=== PATIENT | male | born 1935 | race Asian ===

== ENCOUNTER 2020-02-27 15:44 | Emergency (ER) | payer MEDICARE, MEDICAID ==
--- NOTE | 2020-02-27 16:05 | ED Physician Documentation ---
History of Present Illness - Stated complaint Stated Complaint: RT KNEE PX - Chief complaint Chief Complaint: Ext Problem - History obtained from History obtained from: Patient - History of Present Illness Timing: How many days ago (2) Pain level max: 5 Pain level now: 4 - Additonal information Additional information: 84-year-old male presents to the emergency department with right knee pain that started yesterday, worse today after being up on a ladder. He states he was only up 2-3 steps. States increased pain with walking. No swelling. He also complains of right fourth toe pain for the past 4 months. Does not recall any injury. He is diabetic. He states that his blood sugars are normally around 100. He states he has not seen his doctor for this. Worse with walking, better with rest. No fevers. No chills. No known injury to the foot. Review of Systems Ten Systems: 10 systems reviewed and negative Constitutional: denies: Fever, Chills Ears: denies: Ear pain GI: denies: Vomiting, Diarrhea Skin: denies: Rash Musculoskeletal: denies: Neck pain, Back pain Neurologic: denies: Headache PD PAST MEDICAL HISTORY - Past Medical History Past Medical History: No - Past Surgical History Past Surgical History: No - Present Medications Home Medications: Ambulatory Orders Medication Instructions Recorded Confirmed Amlodipine Besylate 5 mg PO DAILY PM 02/27/20 02/27/20 Amox/Clav 875/125 [Augmentin] 1 each PO Q12H #20 tablet 02/27/20 Aspirin [Adult Aspirin Regimen] 81 mg PO DAILY PM 02/27/20 02/27/20 Dutasteride 0.5 mg PO DAILY 02/27/20 02/27/20 Gabapentin 300 mg PO DAILY 02/27/20 02/27/20 Glimepiride 4 mg PO DAILY 02/27/20 02/27/20 Linagliptin [Tradjenta] 5 mg PO DAILY 02/27/20 02/27/20 Losartan Potassium 100 mg PO DAILY 02/27/20 02/27/20 Lovastatin 40 mg PO DAILY PM 02/27/20 02/27/20 Meloxicam [Mobic] 7.5 mg PO BID PRN #20 tablet 02/27/20 Metoprolol Succinate 50 mg PO DAILY 02/27/20 02/27/20 Tamsulosin HCl [Flomax] 0.4 mg PO DAILY 02/27/20 02/27/20 Timolol 0.5% Ophth Drops [Timoptic 1 drops RIGHTEYE BID 02/27/20 02/27/20 0.5% Ophth Drops] - Allergies Allergies/Adverse Reactions: Allergies Allergy/AdvReac Type Severity Reaction Status Date / Time No Known Drug Allergies Allergy Verified 02/27/20 15:55 - Living Situation Living Situation: reports: With family Living Arrangement: reports: At home - Social History Does the pt smoke?: No Does the pt drink ETOH?: No Does the pt have substance abuse?: No - Family History Family history: reports: Non contributory PD ED PE NORMAL - Vitals Vital signs reviewed: Yes - General General: Alert and oriented X 3, No acute distress - HEENT HEENT: Moist mucous membranes - Cardiac Cardiac: RRR - Respiratory Respiratory: No respiratory distress, Clear bilaterally - Derm Derm: Warm and dry - Extremities Extremities: Other - Neuro Neuro: Alert and oriented X 3 - Free text exam Free text exam: R knee - Normal examination of the knee. Neurovascular intact. No bony tenderness. No joint effusion. ACL, MCL, LCL, PCL are intact. Right foot shows a diffusely erythematous foot across all of the toes extending to the midfoot. There is diffuse swelling as well. Appears to be a small dry lesion to the distal aspect of the R 4th toe. NVI Results - Vitals Vitals: Vital Signs - 24 hr 02/27/20 02/27/20 15:54 17:56 Temperature 36.5 C 36.7 C Heart Rate 58 L 51 L Respiratory 16 18 Rate Blood Pressure 125/54 L 136/60 H O2 Saturation 98 98 Oxygen O2 Source Room air - Labs Labs: Laboratory Tests 02/27/20 02/27/20 02/27/20 16:24 16:24 16:24 WBC 6.9 RBC 4.05 L Hgb 12.4 L Hct 36.8 L MCV 90.9 MCH 30.6 MCHC 33.7 RDW 13.7 Plt Count 140 MPV 11.7 H Neut # (Auto) 4.0 Lymph # (Auto) 1.6 [place] # (Auto) 0.9 Eos # (Auto) 0.4 Baso # (Auto) 0.0 Absolute Nucleated RBC 0.00 Nucleated RBC % 0.0 ESR 15 Sodium 138 Potassium 4.8 Chloride 106 Carbon Dioxide 23 Anion Gap 9.0 BUN 36 H Creatinine 1.9 H Estimated GFR (MDRD) 34 L Glucose 156 H Calcium 8.6 C-Reactive Protein 13.9 H - Rads (name of study) Right foot x-ray Radiology: Prelim report reviewed, EMP read contemporaneously, See rad report (No acute osseous abnormality) Right knee x-ray Radiology: Prelim report reviewed, EMP read contemporaneously, See rad report (Tricompartmental arthritis. No acute abnormality) PD MEDICAL DECISION MAKING - ED course Complexity details: reviewed results, re-evaluated patient, considered differential, d/w patient, d/w family ED course: 84-year-old male presents the emergency department with 2 issues, the first appears to be an arthritis flare of the right knee. Will place on meloxicam for this. The second appears to be cellulitis of the right foot. We will trial him on antibiotics. Does not appear fungal at this time, but if antibiotics fail, would consider antifungal treatment. No evidence of osteomyelitis on x-ray. We will have him follow-up closely with his doctor for repeat evaluation. Patient is ambulating well with a walker. Patient counseled regarding signs and sy mptoms for which I believe and urgent re-evaluation would be necessary. Patient with good understanding of and agreement to plan and is comfortable going home at this time This document was made in part using voice recognition software. While efforts are made to proofread this document, sound alike and grammatical errors may occur. Departure - Departure Disposition: 01 Home, Self Care Clinical Impression: Arthritis of knee Cellulitis Qualifiers: Site of cellulitis: extremity Site of cellulitis of extremity: lower extremity Laterality: right Qualified Code(s): L03.115 - Cellulitis of right lower limb Condition: Good Instructions: ED Infec Skin Cellulitis, ED Degenerative Joint Disease Follow-Up: Pb Goldman MD [Primary Care Provider] - Within 1 week Prescriptions: Amox/Clav 875/125 [Augmentin] 1 each PO Q12H #20 tablet Meloxicam [Mobic] 7.5 mg PO BID PRN #20 tablet PRN Reason: Pain Comments: Take all antibiotics until gone. Return if you worsen. Follow-up with your doctor within 3 days for a wound check. Discharge Date/Time: 02/27/20 18:04
[2020-02-27 16:33] LABS: BASOPHILS % (AUTO) 0.6 %; EOSINOPHILS # (AUTO) 0.4 10^3/uL (0.0-0.7); EOSINOPHILS % (AUTO) 5.1 %; HGB - HEMOGLOBIN 12.4 g/dL (14.0-18.0); LYMPHOCYTES # (AUTO) 1.6 10^3/uL (1.5-3.5); LYMPHOCYTES % (AUTO) 23.7 %; MEAN CORPUSCULAR HEMOGLOBIN 30.6 pg (27.0-31.0); MEAN CORPUSCULAR HGB CONC 33.7 g/dL (32.0-36.0); MEAN CORPUSCULAR VOLUME 90.9 fL (80.0-94.0); MEAN PLATELET VOLUME 11.7 fL (7.4-11.4); MONOCYTES # (AUTO) 0.9 10^3/uL (0.0-1.0); MONOCYTES % (AUTO) 12.6 %; NEUTROPHILS % (AUTO) 57.3 %; PLT - PLATELET COUNT 140 10^3/uL (130-450); RED BLOOD COUNT 4.05 10^6/uL (4.70-6.10); RED CELL DISTRIBUTION WIDTH 13.7 % (12.0-15.0); WHITE BLOOD COUNT 6.9 x10^3/uL (4.8-10.8)
[2020-02-27 16:50] LABS: CALCIUM 8.6 mg/dL (8.5-10.3); CREATININE 1.9 mg/dL (0.6-1.2); CRP - C-REACTIVE PROTEIN 13.9 mg/dL (0-1.0)
--- NOTE | 2020-02-27 17:00 | XRAY Report ---
PROCEDURE: Foot 3 View RT INDICATIONS: R foot redness, swelling, pain x 4 months TECHNIQUE: 3 nonweightbearing views of the foot were acquired. COMPARISON: None. FINDINGS: Bones: No acute fractures or dislocations. No osseous erosions. Minimal degenerative changes of the first metatarsophalangeal joint. No suspicious bony lesions. Soft tissues: No tibiotalar joint effusion. Achilles tendon appears normal. Vascular calcifications are present. IMPRESSION: Right foot without acute fracture or malalignment. Minimal degenerative changes of the right first me tatarsophalangeal joint. If there is continued clinical concern for pathology, then advanced imaging (CT/MRI, bone scan) can b e considered for further evaluation. Reviewed by: Zack Flowers MD on 02/27/2020 4:59 PM PDT Approved by: Zack Flowers MD on 02/27/2020 4:59 PM PDT Station ID: [id number]
--- NOTE | 2020-02-27 17:02 | XRAY Report ---
PROCEDURE: Knee 4 View RT INDICATIONS: R knee pain, no known injury TECHNIQUE: 4 views of the right knee(s) were acquired. COMPARISON: None. FINDINGS: Bones: No acute fractures or dislocations. Tricompartmental osteoarthritic changes of the right knee . No suspicious bony lesions. Soft tissues: No joint effusion. No suspicious soft tissue calcifications. Moderate vascular calcif ications are noted in the imaged portions of the right lower extremity. IMPRESSION: Right knee without acute fracture or malalignment. Tricompartmental osteoarthrosis of the right knee. If there is continued clinical concern for pathology, then advanced imaging (CT/MRI, bone scan) can b e considered for further evaluation. Reviewed by: Zack Flowers MD on 02/27/2020 5:00 PM PDT Approved by: Zack Flowers MD on 02/27/2020 5:00 PM PDT Station ID: [id number]
[2020-02-27] MEDS ORDERED: MELOXICAM 7.5 MG TABLET PO STA (17:28)
[2020-02-27] MEDS ORDERED: AMOX/CLAV 875 MG/125 MG TABLET PO STA (17:28)
[2020-02-27 17:57] VITALS: BP 136/60
[2020-02-27 22:06] LABS: HEMOGLOBIN A1c% 7.2 % (4.27-6.07)
== END 2020-02-27 18:04 | disposition home or self-care (01) ==
LOC: ED 15:44
DX: M17.11 Unilateral primary osteoarthritis, right knee (principal); L03.115 Cellulitis of right lower limb; E11.9 Type 2 diabetes mellitus without complications; Z79.84 Long term (current) use of oral hypoglycemic drugs
CPT/HCPCS: 36415; 73564; 73630; 80048; 83036; 85025; 85651; 86140; 99284; A9270

== ENCOUNTER 2022-05-30 14:37 | Emergency (ER) | payer MEDICARE, MEDICAID ==
[2022-05-30] MEDS ORDERED: TETANUS/DIPHTHERIA/PERTUSSIS 0.5 ML SYRINGE IM ONE (14:48)
[2022-05-30] MEDS ORDERED: LIDOCAINE-EPINEPH-TETRACAINE 3 ML SYRINGE TOP STA (14:48)
--- NOTE | 2022-05-30 14:50 | ED Physician Documentation ---
PD HPI HEAD INJURY - Stated complaint Stated Complaint: HEAD INJ - History obtained from History obtained from: Patient - Additional information Additional information: Patient is an 87-year-old presenting for evaluation of head injury. He was on a table trying to get something out of a shelf when he fell back. He did not realize that the object he was try to get out of the shelf was as heavy as it was. He did hit his head. He did not have LOC. He takes baby aspirin but otherwise no other blood thinners.He denies pain elsewhere. He is unsure of his last tetanus. Review of Systems Constitutional: denies: Fever Cardiac: denies: Chest pain / pressure Respiratory: denies: Dyspnea GI: denies: Abdominal Pain : denies: Dysuria Skin: reports: Laceration (s) Musculoskeletal: denies: Neck pain, Back pain Neurologic: reports: Head injury. denies: Syncope PD PAST MEDICAL HISTORY - Past Surgical History Past Surgical History: No - Present Medications Home Medications: Ambulatory Orders Medication Instructions Recorded Confirmed Amlodipine Besylate 5 mg PO DAILY PM 02/27/20 02/27/20 Amox/Clav 875/125 [Augmentin] 1 each PO Q12H #20 tablet 02/27/20 Aspirin [Adult Aspirin Regimen] 81 mg PO DAILY PM 02/27/20 02/27/20 Dutasteride 0.5 mg PO DAILY 02/27/20 02/27/20 Gabapentin 300 mg PO DAILY 02/27/20 02/27/20 Glimepiride 4 mg PO DAILY 02/27/20 02/27/20 Linagliptin [Tradjenta] 5 mg PO DAILY 02/27/20 02/27/20 Losartan Potassium 100 mg PO DAILY 02/27/20 02/27/20 Lovastatin 40 mg PO DAILY PM 02/27/20 02/27/20 Meloxicam [Mobic] 7.5 mg PO BID PRN #20 tablet 02/27/20 Metoprolol Succinate 50 mg PO DAILY 02/27/20 02/27/20 Tamsulosin HCl [Flomax] 0.4 mg PO DAILY 02/27/20 02/27/20 Timolol 0.5% Ophth Drops [Timoptic 1 drops RIGHTEYE BID 02/27/20 02/27/20 0.5% Ophth Drops] - Allergies Allergies/Adverse Reactions: Allergies Allergy/AdvReac Type Severity Reaction Status Date / Time No Known Drug Allergies Allergy Verified 02/27/20 15:55 - Social History Does the pt smoke?: No Does the pt drink ETOH?: No Does the pt have substance abuse?: No PD ED PE NORMAL - General General: Alert and oriented X 3, No acute distress, Well developed/nourished - HEENT HEENT: PERRL, EOMI, Other (Large left forehead laceration) - Neck Neck: Supple, no meningeal sign, No bony TTP, C-Spine cleared by NEXUS criteria - Cardiac Cardiac: RRR, Strong equal pulses - Respiratory Respiratory: No respiratory distress, Clear bilaterally - Abdomen Abdomen: Soft, Non tender - Derm Derm: Warm and dry - Extremities Extremities: No deformity - Neuro Neuro: Alert and oriented X 3, bone char puller 2-12 intact, No motor deficit, Normal speech Eye Opening: Spontaneous Motor: Obeys Commands Verbal: Oriented GCS Score: 15 Results - Vitals Vitals: Vital Signs - 24 hr 05/30/22 05/30/22 14:49 17:15 Temperature 36.6 C Heart Rate 61 75 Respiratory 18 18 Rate Blood Pressure 167/72 H 165/76 H O2 Saturation 100 98 Oxygen O2 Source Room air Procedures - Laceration (location) Left forehead Length in cm: 10 Wound type: Irregular, Clean Neurovascular status: Sensory intact, Motor intact, Vascular intact Anesthesia: LET, Lidocaine 1% with epi Wound preparation: Hibiclens, Irrigated copiously NS Deep layer closure: Vicryl, size #-0 - enter number (6), # sutures - enter number (4) Skin layer closure: Running, Size #-0 - enter number (5), Sutures - enter # (16) Other: Patient tolerated well, No complications, Neurovascular intact, Dressing applied, Tetanus booster given PD MEDICAL DECISION MAKING - ED course Complexity details: reviewed results, re-evaluated patient, d/w patient ED course: Patient evaluated after head injury. He does not take a blood thinner. He has a large laceration to his left forehead that was sutured.His CT scan is negative for intracranial injuries. He has no neck tenderness or pain elsewhere. He has a normal neuro exam. His vital signs appear stable. Patient is were counseled on wound care instructions as well as need to return for suture removal. They are advised on concerning symptoms to return for. Departure - Departure Disposition: 01 Home, Self Care Clinical Impression: Head injury Qualifiers: Encounter type: initial encounter Qualified Code(s): S09.90XA - Unspecified injury of head, initial encounter Forehead laceration Qualifiers: Encounter type: initial encounter Qualified Code(s): S01.81XA - Laceration without foreign body of other part of head, initial encounter Condition: Stable Instructions: ED Head Injury Closed, ED Laceration Facial Sutr Tape Comments: The CT scan of your brain does not show any injuries from your fall. You do have a long laceration to your forehead. This was repaired with 16 stitches.The stitches should be removed in 5 to 7 days. Please keep the wound clean and dry. If you notice any worsening symptoms such as redness, abnormal drainage, or any concerns please return sooner to the emergency department. Return June 06 for suture removal. Please use ice and Tylenol for areas of pain. Ice may be helpful with the swelling you should expect to the wound area. Discharge Date/Time: 05/30/22 17:15
[2022-05-30] MEDS ORDERED: LIDOCAINE 1%-EPI 1:100000 20 ML MDV SUBQ STA (15:41)
--- NOTE | 2022-05-30 15:58 | CT Report ---
PROCEDURE: HEAD WO INDICATIONS: head injury TECHNIQUE: Noncontrast 4.5 mm thick angled axial sections acquired from the foramen magnum to the vertex. For r adiation dose reduction, the following was used: automated exposure control, adjustment of mA and/or kV according to patient size. COMPARISON: None FINDINGS: Image quality: Excellent. CSF spaces: Basal cisterns are patent. No extra-axial fluid collections. The ventricles are symmet kenny in size and shape. Brain: No intracranial bleeds or masses. There is marked cerebral volume loss for age, with resulta nt ventricular and sulcal prominence. There are periventricular and deep white matter chronic small vessel ischemic changes. There is intracranial internal carotid artery atherosclerosis. Skull and face: A soft tissue laceration overlies the left frontal bone. Calvarium and visualized fac ial bones appear intact, without suspicious lesions. Of note, a prominent vascular groove is noted i n the region of the soft tissue laceration; however no fracture is visualized. Sinuses: Visualized sinuses and mastoids are clear. IMPRESSION: 1. Left frontal soft tissue laceration without underlying calvarial abnormality or intracranial findi ngs. Reviewed by: Monica Benavides MD on 05/30/2022 3:57 PM PST Approved by: Monica Benavides MD on 05/30/2022 3:57 PM PST Station ID: [id number]
[2022-05-30 17:16] VITALS: BP 165/76
== END 2022-05-30 17:15 | disposition home or self-care (01) ==
LOC: ED 14:37
DX: S01.81XA Laceration without foreign body of other part of head, initial encounter (principal); W01.0XXA Fall on same level from slipping, tripping and stumbling without subsequent striking against object, initial encounter; Z23 Encounter for immunization; Z71.85 Encounter for immunization safety counseling
CPT/HCPCS: 12054; 90471; 99282; 99284

== ENCOUNTER 2022-06-07 10:29 | Emergency (ER) | payer MEDICARE, MEDICAID ==
[2022-06-07 10:51] VITALS: BP 144/57
--- NOTE | 2022-06-07 11:22 | ED Physician Documentation ---
History of Present Illness - Stated complaint Stated Complaint: STITCH REMOVAL - Chief complaint Chief Complaint: General - History obtained from History obtained from: Patient, Family - Additonal information Additional information: The patient comes to the emergency department for suture removal after sustaining a laceration to his left scalp about 1 week ago. He denies any complaints or issues with the wound. Review of Systems Ten Systems: 10 systems reviewed and negative Constitutional: reports: Reviewed and negative Eyes: reports: Reviewed and negative Ears: reports: Reviewed and negative Nose: reports: Reviewed and negative Throat: reports: Reviewed and negative Cardiac: reports: Reviewed and negative Respiratory: reports: Reviewed and negative GI: reports: Reviewed and negative : reports: Reviewed and negative Skin: reports: Laceration (s) Musculoskeletal: reports: Reviewed and negative Neurologic: reports: Reviewed and negative Psychiatric: reports: Reviewed and negative Endocrine: reports: Reviewed and negative Immunocompromised: reports: Reviewed and negative PD PAST MEDICAL HISTORY - Past Surgical History Past Surgical History: No - Present Medications Home Medications: Ambulatory Orders Medication Instructions Recorded Confirmed Amlodipine Besylate 5 mg PO DAILY PM 02/27/20 02/27/20 Amox/Clav 875/125 [Augmentin] 1 each PO Q12H #20 tablet 02/27/20 Aspirin [Adult Aspirin Regimen] 81 mg PO DAILY PM 02/27/20 02/27/20 Dutasteride 0.5 mg PO DAILY 02/27/20 02/27/20 Gabapentin 300 mg PO DAILY 02/27/20 02/27/20 Glimepiride 4 mg PO DAILY 02/27/20 02/27/20 Linagliptin [Tradjenta] 5 mg PO DAILY 02/27/20 02/27/20 Losartan Potassium 100 mg PO DAILY 02/27/20 02/27/20 Lovastatin 40 mg PO DAILY PM 02/27/20 02/27/20 Meloxicam [Mobic] 7.5 mg PO BID PRN #20 tablet 02/27/20 Metoprolol Succinate 50 mg PO DAILY 02/27/20 02/27/20 Tamsulosin HCl [Flomax] 0.4 mg PO DAILY 02/27/20 02/27/20 Timolol 0.5% Ophth Drops [Timoptic 1 drops RIGHTEYE BID 02/27/20 02/27/20 0.5% Ophth Drops] - Allergies Allergies/Adverse Reactions: Allergies Allergy/AdvReac Type Severity Reaction Status Date / Time No Known Drug Allergies Allergy Verified 06/07/22 10:52 - Social History Does the pt smoke?: No Smoking Status: Never smoker Does the pt drink ETOH?: No Does the pt have substance abuse?: No PD ED PE NORMAL - Vitals Vital signs reviewed: Yes - General General: Alert and oriented X 3, No acute distress, Well developed/nourished - HEENT HEENT: PERRL, EOMI, Moist mucous membranes, Other - Neck Neck: Supple, no meningeal sign - Respiratory Respiratory: No respiratory distress - Derm Derm: Normal color, Warm and dry, No rash, Other (Healing scalp laceration with [address]) - Extremities Extremities: No deformity - Neuro Neuro: Alert and oriented X 3 - Psych Psych: Normal mood, Normal affect Results - Vitals Vitals: Vital Signs - 24 hr 06/07/22 10:47 Temperature 36.5 C Heart Rate 57 L Respiratory 18 Rate Blood Pressure 144/57 H O2 Saturation 98 Oxygen O2 Source Room air Procedures - Suture/staple Removal (location) Left scalp Suture/staple removal: # sutures (16), No complications PD MEDICAL DECISION MAKING - ED course Complexity details: d/w patient, d/w family ED course: Sutures were removed without difficulty. I discussed with patient and continued wound care at home, as well as the usual indications for return. Departure - Departure Disposition: 01 Home, Self Care Clinical Impression: Encounter for removal of sutures Condition: Stable Instructions: ED Wound Check Sutr Remove No Infec Comments: 16 sutures were removed from your scalp today. You may gently wash the wound with water and soap to get rid of the scabs. Your wound will continue its healing process over the next 2 or 3 weeks. You may notice some soreness there but this will subside in time. There is no evidence of infection of your wound, but you are welcome to use antibiotic ointment if you would like.
== END 2022-06-07 11:29 | disposition home or self-care (01) ==
LOC: ED 10:29
DX: S01.01XD Laceration without foreign body of scalp, subsequent encounter (principal); W45.8XXD Other foreign body or object entering through skin, subsequent encounter
CPT/HCPCS: 99281